=== PATIENT | male | born 1980 | race African-American/Black ===

== ENCOUNTER → 2020-02-21 | Outpatient (CLI) | payer OTHER ==
[~2020-02-21] MED LIST: ALBUTEROL2.5 MG/3 M INH; AMLODIPINE BESY10 MG PO; ASA81BEC PO; CARVEDILOL25 MG PO; HYDRALAZINE 5050 MG PO; HYDROXYZINE HCL25 M2 PO; MULTIVITAMINS PO; PLAVIX 75 MG TA75 MG PO
== END ==
LOC: LAB 08:59
PROVIDERS: ATTEND Otolaryngology
DX: Z01.812 Encounter for preprocedural laboratory examination (principal); Z20.828 Contact with and (suspected) exposure to other viral communicable diseases

== ENCOUNTER 2020-02-25 06:14 | Day surgery (SDC) | payer OTHER ==
--- NOTE | 2020-02-22 11:43 | NUR ---
RECEIVED RECORDS FROM [facility] FROM November,, WHEN PATIENT WAS ADMITTED FOR A STROKE. DR KELLY REVIEWED RECORDS, NO NEED FOR PATIENT TO COME IN FOR PAC APPT. SHE DID ORDER FOR PATIENT TO TAKE BP MEDICATIONS THE DOS, AND IF BP IS ELEVATED DOS, SURGERY WOULD BE CANCELLED ON THAT DAY. ALSO PATIENT IS NOT TO DRINK ALCOHOL DAY BEFORE OR DAY OF SURGERY. SHE ALSO INSTRUCTED NURSE TO NOTIFY DR ALLEN THAT PATIENT IS AT RISK FOR BLEEDING DUE TO ALCOHOL INTAKE. CALLED OFFICE AND LEFT MESSAGE WITH DR ALLEN'S ANSWERING SERVICE.
[~2020-02-25] VITALS: Ht 175.3 cm; Wt 76.7 kg
[2020-02-25 06:38] VITALS: BP 136/96
[2020-02-25 07:36] LABS: CALCIUM 8.8 mg/dL (8.5-10.1); CREATININE 1.6 mg/dL (0.7-1.3); POTASSIUM 3.8 mmol/L (3.5-5.1)
[2020-02-25 07:43] LABS: ALBUMIN 3.2 g/dL (3.4-5.0); TOTAL BILIRUBIN 0.3 mg/dL (0.2-1.0); TOTAL PROTEIN 6.7 g/dL (6.4-8.2)
--- NOTE | 2020-02-25 08:57 | H ---
[facility] [place] [address] HISTORY AND PHYSICAL Name: CUBA RUSSO JR Room #: 150-1 [facility]#: [id number] Admission: 02/25/20 Attend Phys: Luis Reaves MD Discharge: Date of : 80 Report #: [id number] THIS REPORT FOR: cc: [facility] - Family physician unknown FAM - Family physician unknown Luis Reaves MD ~ CC: [facility] unknown Luis Reaves DATE OF SERVICE: 02/25/2020 His procedure is scheduled for 02/25/2020. HISTORY OF PRESENT ILLNESS: The patient has difficulty breathing through his nose. He has severe congestion with symptoms of a sinus infection since June. He suffered a stroke in November because of high blood pressure. He does not think that he has ever breathe very well through his nose. He has been treated with steroid nasal spray, steroids and antibiotics, which do not help. He has decreased sense of smell. I placed him on a course of steroids and antibiotics and obtained a CT scan of his sinuses, which showed almost complete opacification of all the sinuses with polyps in the nasal cavity. PAST MEDICAL HISTORY: Otherwise, significant for his previous stroke. MEDICATIONS: Include Plavix, amlodipine, carvedilol, aspirin. ALLERGIES: He has no known drug allergies. PHYSICAL EXAMINATION: He has polyps in the middle meatuses on both sides with severe congestion of the nasal mucosa and very little airway. His oropharynx and oral cavity were clear. He had no adenopathy or masses in his neck. IMPRESSION: Chronic pansinusitis with nasal and sinus polyposis. PLAN: Endoscopic bilateral maxillary antrostomies, complete ethmoidectomies, frontal duct explorations and sphenoidotomies using image guidance surgery. <ELECTRONICALLY SIGNED> By: Luis Reaves MD 02/25/20 [id number] Luis Reaves MD /nt
[2020-02-25 09:04] VITALS: BP 136/96
--- NOTE | 2020-02-29 11:13 | O ---
[facility] [place] [address] OPERATIVE REPORT Name: CUBA RUSSO JR Room #: DEP [facility]#: [id number] Admission: 02/25/20 Attend Phys: Luis Reaves MD Discharge: 02/25/20 Date of : 80 Report #: [id number] THIS REPORT FOR: cc: FAM - Family physician unknown FAM - Family physician unknown Luis Reaves MD ~ CC: [facility] unknown Luis Reaves DATE OF SERVICE: 02/25/2020 PREOPERATIVE DIAGNOSES: Chronic pansinusitis with nasal and sinus polyposis. POSTOPERATIVE DIAGNOSES: Chronic pansinusitis with nasal and sinus polyposis. OPERATIVE PROCEDURE: Endoscopic bilateral maxillary antrostomies with removal of polyps, bilateral complete ethmoidectomies, bilateral frontal duct explorations and bilateral sphenoidotomies with removal of polyps. ANESTHESIA: General by laryngeal mask. DESCRIPTION OF PROCEDURE: The patient was taken to the operating room and placed in a supine position. General anesthesia was induced by laryngeal mask. Once adequate general anesthesia was obtained, local nasal anesthesia was induced by submucoperiosteal injection of 1% lidocaine with 1:100,000 epinephrine and topical application of cocaine solution. The patient was then draped in a sterile manner. The nasal endoscope was used to visualize the left nasal cavity and the middle turbinate was deviated medially. The uncinate process was bulging extremely swollen and there were polyps in the middle meatus. The uncinate process was removed using the microdebrider and the natural opening maxillary sinus was located. The maxillary sinus was filled with polyps and these polyps were removed along with purulence and polyps were removed from the middle meatus using the microdebrider. An ethmoidectomy was performed by removing the ethmoidal bulla and then following the ethmoid air cells back to and through the basal lamella and then forward along the lamina papyracea and fovea ethmoidalis to complete the ethmoidectomy anteriorly. I also followed polyps up into the frontal duct. I moved the middle turbinate laterally and cleaned into the sphenoethmoid recess. I removed polyps and I found the sphenoid opening. Surgiflo was placed into the ethmoid cavity and middle meatus for hemostasis. The exact same procedure was performed on the right side. FloSeal was placed on the right side as well. The patient tolerated the procedure well. Blood loss was approximately 100 mL. The patient [address] [address] OPERATIVE REPORT Name: CUBA RUSSO JR [id number] Admission: 02/25/20 Attend Phys: Luis Reaves MD Discharge: 02/25/20 Date of : 80 Report #: [id number] was then awoken and taken to the recovery room in stable condition for postoperative monitoring. <ELECTRONICALLY SIGNED> By: Luis Reaves MD 02/29/20 [id number] Luis Reaves MD /arlin
== END 2020-02-25 10:15 | disposition home or self-care (01) ==
LOC: OR → TBA 06:19 → OR 10:15
PROVIDERS: Anesthesiology; ATTEND Otolaryngology
DX: J32.4 Chronic pansinusitis (principal); J33.9 Nasal polyp, unspecified; J33.8 Other polyp of sinus; I10 Essential (primary) hypertension; K21.9 Gastro-esophageal reflux disease without esophagitis; F17.210 Nicotine dependence, cigarettes, uncomplicated; Z98.890 Other specified postprocedural states; Z79.899 Other long term (current) drug therapy; Z86.73 Personal history of transient ischemic attack (TIA), and cerebral infarction without residual deficits; Z79.82 Long term (current) use of aspirin
CPT/HCPCS: 50010; 50101; 50286; 50386; 50398; 50573; 51751; 52290; 52291; 56635; 62110; 62900; 70005